=== PATIENT | male | born 1980 | race Caucasian/White ===

== ENCOUNTER 2018-01-01 00:50 | Emergency (ER) | payer SELFPAY ==
[~2018-01-01] VITALS: Ht 172.7 cm; Wt 84.1 kg
[~2018-01-01 00:50] MED LIST: AMOXICILLIN 50500 MG PO; NO DOZ100 MG; NO HOME MEDICATIONS; NORCO 325 MG-51 TAB PO
[2018-01-01 00:52] VITALS: BP 139/64; TEMP 97.6
[2018-01-01] MEDS ORDERED: DOXYCYCLINE 10100 MG PO (01:34)
[2018-01-01 01:45] VITALS: PULSE 103
== END 2018-01-01 01:48 | disposition home or self-care (01) ==
LOC: COL.ER 00:50
DX: J18.9 Pneumonia, unspecified organism (principal); F17.210 Nicotine dependence, cigarettes, uncomplicated

== ENCOUNTER 2024-04-11 01:36 | Emergency (ER) | payer SELFPAY ==
[~2024-04-11] VITALS: Ht 167.6 cm; Wt 106.8 kg
[~2024-04-11 01:36] MED LIST changes: +DOXYCYCLINE 10100 MG PO
[2024-04-11 01:41] VITALS: TEMP 98
[2024-04-11] MEDS ORDERED: Albuterol/Ipratropium 3 MG-0.5 MG/3 ML Neb Soln IH SCH (02:15)
[2024-04-11] MEDS ORDERED: methylPREDNISolone Sod Succ 125 MG/2 ML VIAL IV ONE (02:15)
[2024-04-11] MEDS ORDERED: Albuterol 90 MCG/PUFF 8 GM MDI IH ONE (03:45)
[2024-04-11] MEDS ORDERED: NS 1,000 ML IV ONE (04:45)
[2024-04-11 04:58] LABS: BASO # 0.1 K/mm3 (0.0-0.2); BASO % 0.7 % (0.0-2.0); EOS % 0.3 % (0.0-4.0); GRAN # 7.6 K/mm3 (1.4-6.5); HEMATOCRIT 46.8 % (42.0-52.0); HEMOGLOBIN 15.8 g/dl (13.5-18.0); LYMPH % 11.1 % (20.0-51.0); MEAN CELL VOLUME 83 fl (80.0-100.0); MEAN CORPUSCULAR HEMOGLOBIN 28 pg (27-31); MEAN CORPUSCULAR HGB CONC 34 g/dl (33.0-37.0); MEAN PLATELET VOLUME 9.6 fl (7.4-10.4); MONO # 0.2 K/mm3 (0.1-0.6); MONO % 2.6 % (1.7-9.3); PLATELET COUNT 235 K/mm3 (130-400); RED BLOOD COUNT 5.64 M/mm3 (4.20-5.60); REDCELL DISTRIBUTION WIDTH-CV 13.2 % (11.5-14.5)
[2024-04-11 05:04] LABS: INR 1.1 (0.8-3.0); PROTHROMBIN TIME 12.2 SECONDS (9.7-12.8)
[2024-04-11 05:10] LABS: ALANINE AMINOTRANSFERASE 19 U/L (0-55); ALBUMIN 3.7 g/dL (3.5-5.0); ALKALINE PHOSPHATASE 80 U/L (40-150); ANION GAP 12 mmol/L (7-16); AST,SGOT 19 U/L (5-34); BILIRUBIN,TOTAL 1.5 mg/dL (0.2-1.2); BLOOD UREA NITROGEN 7 mg/dL (9-21); C-REACTIVE PROTEIN 2.74 mg/dL (0.00-0.50); CALCIUM 9.2 mg/dL (8.4-10.2); CHLORIDE 105 mEq/L (98-107); CREATININE, serum 1.13 mg/dL (0.72-1.25); GLUCOSE 161 mg/dL (70-99); POTASSIUM 3.4 mEq/L (3.5-4.5); SODIUM 139 mEq/L (136-145); TOTAL PROTEIN 7.2 g/dl (6.2-8.1)
[2024-04-11] MEDS ORDERED: Iohexol 350 - 100 ML VIAL IV ONE (05:19)
[2024-04-11] MEDS ORDERED: NS 50 ML IV SCH (05:19)
[2024-04-11 05:29] LABS: TROPONIN-I < 0.010 ng/mL (0.00-0.033)
[2024-04-11] MEDS ORDERED: Albuterol 0.083% Neb Soln 2.5 MG/3 ML UD IH ONE (06:15)
[2024-04-11] MEDS ORDERED: Albuterol/Ipratropium 3 MG-0.5 MG/3 ML Neb Soln IH ONE (06:15)
[2024-04-11] MEDS ORDERED: Doxycycline Monohydrate 100 MG CAP PO ONE (07:15)
[2024-04-11] MEDS ORDERED: predniSONE 20 MG TAB PO ONE (07:15)
[2024-04-11 07:30] VITALS: BP 111/63; PULSE 65
== END 2024-04-11 07:30 | disposition home or self-care (01) ==
LOC: COL.ER 01:36
PROVIDERS: Emergency Medicine
DX: J43.9 Emphysema, unspecified (principal)
CPT/HCPCS: J2919; J7030; J7512; Q9967

== ENCOUNTER 2024-06-23 10:54 | Emergency (ER) | payer SELFPAY ==
[~2024-06-23] VITALS: Ht 170.2 cm; Wt 106.8 kg
[2024-06-23] MEDS ORDERED: PREDNISONE20 MG PO (11:35)
[2024-06-23] MEDS ORDERED: RT ALBUTER2.5 MG/0.5 IH (11:35)
[2024-06-23] MEDS ORDERED: predniSONE 20 MG TAB PO ONE (11:45)
[2024-06-23] MEDS ORDERED: Albuterol/Ipratropium 3 MG-0.5 MG/3 ML Neb Soln IH ONE (11:45)
[2024-06-23 11:55] VITALS: BP 114/73; PULSE 78; TEMP 97.2
== END 2024-06-23 12:06 | disposition home or self-care (01) ==
LOC: COL.ER 10:54
DX: J44.1 Chronic obstructive pulmonary disease with (acute) exacerbation (principal); F17.290 Nicotine dependence, other tobacco product, uncomplicated
CPT/HCPCS: J7512

== ENCOUNTER 2024-09-26 07:41 | Emergency (ER) | payer SELFPAY ==
[~2024-09-26] VITALS: Ht 165.1 cm; Wt 104.5 kg
[~2024-09-26 07:41] MED LIST changes: +PREDNISONE20 MG PO; +RT ALBUTER2.5 MG/0.5 IH
[2024-09-26 07:46] VITALS: TEMP 97.5
[2024-09-26] MEDS ORDERED: Ibuprofen 400 MG TAB PO ONE (08:15)
[2024-09-26 09:35] VITALS: BP 118/84; PULSE 75
== END 2024-09-26 09:38 | disposition home or self-care (01) ==
LOC: COL.ER 07:41
DX: R07.81 Pleurodynia (principal); F17.210 Nicotine dependence, cigarettes, uncomplicated; W00.0XXA Fall on same level due to ice and snow, initial encounter